=== PATIENT | male | born 1990 | race African-American/Black ===

== ENCOUNTER 2016-11-06 00:33 | Emergency (ER) | payer SELFPAY ==
[~2016-11-06] VITALS: Ht 185.4 cm; Wt 77.2 kg
[2016-11-06 01:15] VITALS: BP 120/68
== END 2016-11-06 01:31 ==
LOC: EME 00:33
PROC: 3E0234Z Introduction of Serum, Toxoid and Vaccine into Muscle, Percutaneous Approach (ICD-10-PCS; principal; 2016-11-06)
DX: S31.040A Puncture wound with foreign body of lower back and pelvis without penetration into retroperitoneum, initial encounter (principal); S71.141A Puncture wound with foreign body, right thigh, initial encounter; Y35.493A Legal intervention involving other sharp objects, suspect injured, initial encounter; S00.81XA Abrasion of other part of head, initial encounter; S60.511A Abrasion of right hand, initial encounter; S60.811A Abrasion of right wrist, initial encounter; W18.30XA Fall on same level, unspecified, initial encounter; Y99.8 Other external cause status; Z23 Encounter for immunization; F17.200 Nicotine dependence, unspecified, uncomplicated
CPT/HCPCS: 99281; 99285